=== PATIENT | female | born 1950 | race Caucasian/White ===

== ENCOUNTER 2024-03-18 12:14 | Emergency (ER) | payer OTHER ==
--- OUTSIDE RECORDS SUMMARY | 2024-03-18 12:17 | XMS REPORT | Continuity of Care Document ---
Author Name Unknown Address [address] [place] [address] [facility] thconnect Address [address] [place] [address] Care Team Providers Care Director Of Hotel Name Role Phone Celestino Gongora Attending Clinician Unavailable Payers Payer Name Policy Type Policy Number Effective Date Expirati on Date Source [facility] Medicare Advantage 53 [id number] [facility] Problems Condition Name Condition Details Condition Category Status Onset Date Resolution Date Last Treatment Date Treating Clinician Comments Source [id number] Schizophre medina, unspecifie d type Problem [facility] [id number] Chronic obstructiv e pulmonary disease, unspecifie d COPD type Problem [facility] [id number] Intellectu al disability Problem [facility] [id number] Essential hypertensi on Problem [facility] [id number] COPD exacerbati on Problem [facility] [id number] Restless leg syndrome Problem [facility] [id number] Pure hyperchole sterolemia Problem [facility] Allergies, Adverse Reactions, Alerts Allergy Name Allergy Type Status Severity Reaction(s) Onset Date Inactive Date Treating Clinician Comments Source Substanc e with sulfonam ghada structur e and antibact erial mechanis m of action (substan ce) Substanc e with sulfonam ghada structur e and antibact erial mechanis m of action (substan ce) Active Unknown [facility] Social History Social Habit Start Date Stop Date Quantity Comments Source History of Tobacco Use [facility] Sex Assigned At [facility] Smoking Status Start Date Stop Date Source Never Smoker [facility] Medications Ordered Medication Name Filled Medication Name Start Date Stop Date Current Medication? Ordering Clinician Indication Dosage Frequency Signature (SIG) Comments Components Source Azithromyci n 250 MG Azithromyci n 250 MG 8- 00:00: 00 No Azithromyc in 250 MG predniSONE 10 MG (21) predniSONE 10 MG (21) 8-09 00:00: 00 No QD predniSONE 10 MG (21) Gabapentin 100 MG Gabapentin 100 MG 2- 00:00: 00 No 1{capsu le} QD Gabapentin 100 MG Carvedilol 3.125 MG Carvedilol 3.125 MG 2- 00:00: 00 No 1{table t_with_ food} BID Carvedilol 3.125 MG Symbicort 160-4.5 MCG/ACT Symbicort 160-4.5 MCG/ACT No 2{puffs } BID Symbicort 160-4.5 MCG/ACT Lisinopril 5 MG Lisinopril 5 MG No 1{table t} QD Lisinopril 5 MG buPROPion HCl 100 MG buPROPion HCl 100 MG No 1{table t} BID buPROPion HCl 100 MG QUEtiapine Fumarate 50 MG QUEtiapine Fumarate 50 MG No 1{table t_at_be dtime} QD QUEtiapine Fumarate 50 MG Citalopram Hydrobromid e 40 MG Citalopram Hydrobromid e 40 MG No 1{table t} QD Citalopram Hydrobromi de 40 MG Spiriva Respimat 1.25 MCG/ACT Spiriva Respimat 1.25 MCG/ACT No 2{puffs } QD Spiriva Respimat 1.25 MCG/ACT Albuterol Sulfate (2.5 MG/3ML) 0.083% Albuterol Sulfate (2.5 MG/3ML) 0.083% No 3{ml_as _needed } QID Albuterol Sulfate (2.5 MG/3ML) 0.083% Dulcolax 5 MG Dulcolax 5 MG No 1{table t_as_ne eded} QD Dulcolax 5 MG Vital Signs Vital Name Observation Time Observation Value Comments James cooper height 2024-03-01 11:00:00 60.5 [in_i] Comm on [facility] weight 2024-03-01 11:00:00 153.3 [lb_av] Co mmon [facility] temperature 2024-03-01 11:00:00 97.8 [degF] Com mon [facility] bmi 2024-03-01 11:00:00 29.44 kg/m2 Comm on [facility] oximetry 2024-03-01 11:00:00 96 % Commo n [facility] respiratory rate 2024-03-01 11:00:00 16 /min [facility] blood pressure systolic 2024-03-01 11:00:00 127 mm[Hg] [facility] blood pressure diastolic 2024-03-01 11:00:00 79 mm[Hg] [facility] weight 2023-11-16 13:20:00 157.2 [lb_av] Co mmon [facility] temperature 2023-11-16 13:20:00 97.9 [degF] Com [facility] bmi 2023-11-16 13:20:00 30.19 kg/m2 Comm on [facility] oximetry 2023-11-16 13:20:00 97 % Commo n [facility] respiratory rate 2023-11-16 13:20:00 16 /min [facility] blood pressure systolic 2023-11-16 13:20:00 102 mm[Hg] [facility] blood pressure diastolic 2023-11-16 13:20:00 67 mm[Hg] [facility] height 2023-11-16 13:20:00 60.5 [in_i] Comm on [facility] height 2023-09-21 16:00:00 60.5 [in_i] Comm on [facility] weight 2023-09-21 16:00:00 159.6 [lb_av] Co mmon [facility] temperature 2023-09-21 16:00:00 97.6 [degF] Com mon [facility] bmi 2023-09-21 16:00:00 30.65 kg/m2 Comm on [facility] oximetry 2023-09-21 16:00:00 98 % Commo n [facility] respiratory rate 2023-09-21 16:00:00 16 /min [facility] blood pressure systolic 2023-09-21 16:00:00 138 mm[Hg] [facility] blood pressure diastolic 2023-09-21 16:00:00 71 mm[Hg] [facility] height 2023-09-13 09:40:00 60.5 [in_i] Comm on [facility] weight 2023-09-13 09:40:00 160 [lb_av] Comm on [facility] temperature 2023-09-13 09:40:00 98.2 [degF] Com mon [facility] bmi 2023-09-13 09:40:00 30.73 kg/m2 Comm on [facility] oximetry 2023-09-13 09:40:00 94 % Commo n [facility] respiratory rate 2023-09-13 09:40:00 16 /min Common [facility] blood pressure systolic 2023-09-13 09:40:00 137 mm[Hg] [facility] blood pressure diastolic 2023-09-13 09:40:00 79 mm[Hg] [facility] height 2023-09-07 15:40:00 60.5 [in_i] Comm on [facility] weight 2023-09-07 15:40:00 159.2 [lb_av] Co mmon [facility] temperature 2023-09-07 15:40:00 97.8 [degF] Com mon [facility] bmi 2023-09-07 15:40:00 30.58 kg/m2 Comm on [facility] oximetry 2023-09-07 15:40:00 97 % Commo n [facility] respiratory rate 2023-09-07 15:40:00 16 /min Common [facility] blood pressure systolic 2023-09-07 15:40:00 135 mm[Hg] [facility] blood pressure diastolic 2023-09-07 15:40:00 68 mm[Hg] [facility] height 2023-08-17 13:40:00 60.5 [in_i] Comm on [facility] weight 2023-08-17 13:40:00 157.4 [lb_av] Co mmon [facility] temperature 2023-08-17 13:40:00 97.2 [degF] Com [facility] bmi 2023-08-17 13:40:00 30.23 kg/m2 Comm on [facility] oximetry 2023-08-17 13:40:00 97 % Commo n [facility] respiratory rate 2023-08-17 13:40:00 16 /min Common [facility] blood pressure systolic 2023-08-17 13:40:00 138 mm[Hg] [facility] blood pressure diastolic 2023-08-17 13:40:00 88 mm[Hg] [facility] height 2023-07-10 13:20:00 60.5 [in_i] Comm on [facility] weight 2023-07-10 13:20:00 155.0 [lb_av] Co mmon [facility] temperature 2023-07-10 13:20:00 97.2 [degF] Com [facility] bmi 2023-07-10 13:20:00 29.77 kg/m2 Comm on [facility] oximetry 2023-07-10 13:20:00 95 % Commo n [facility] respiratory rate 2023-07-10 13:20:00 16 /min [facility] blood pressure systolic 2023-07-10 13:20:00 136 mm[Hg] [facility] blood pressure diastolic 2023-07-10 13:20:00 88 mm[Hg] [facility] Encounters Start Date/Time End Date/Time Encounter Type Admission Type Attending [facility] Care Facility Care Department Encounter ID Source 2024-03-01 10:59:00 Outpatient Celestino Gongora STLC STLMLC [id number] [facility] 2023-07-10 13:25:01 Outpatient Celestino Gongora STLMLC STLMLC [id number] [facility] 2024-03-01 00:00:00 2024-03-01 00:00:00 OFFICE VISIT ESTAB PT LEVEL 3 STLMLC STLMLC [id number] [facility] 2024-02-28 00:00:00 2024-02-28 00:00:00 (TEL) STLMLC STLMLC [id number] [facility] 2023-11-27 00:00:00 2023-11-27 00:00:00 (TEL) STLMLC STLMLC [id number] [facility] 2023-11-16 00:00:00 2023-11-16 00:00:00 OFFICE VISIT ESTAB PT LEVEL 4 STLMLC STLMLC [id number] [facility] 2023-10-05 00:00:00 2023-10-05 00:00:00 (TEL) STLMLC STLMLC [id number] [facility] 2023-09-21 00:00:00 2023-09-21 00:00:00 OFFICE VISIT ESTAB PT LEVEL 3 STLMLC STLMLC [id number] [facility] 2023-09-15 00:00:00 2023-09-15 00:00:00 (TEL) STLMLC STLMLC [id number] [facility] 2023-09-14 00:00:00 2023-09-14 00:00:00 (TEL) STLMLC STLMLC [id number] [facility] 2023-09-13 00:00:00 2023-09-13 00:00:00 OFFICE VISIT ESTAB PT LEVEL 3 STLMLC STLMLC [id number] [facility] 2023-09-13 00:00:00 2023-09-13 00:00:00 (TEL) STLMLC STLMLC [id number] [facility] 2023-09-11 00:00:00 2023-09-11 00:00:00 (TEL) STLMLC STLMLC [id number] [facility] 2023-09-07 00:00:00 2023-09-07 00:00:00 OFFICE VISIT ESTAB PT LEVEL 4 STLMLC STLMLC [id number] [facility] 2023-09-05 00:00:00 2023-09-05 00:00:00 (TEL) STLMLC STLMLC [id number] [facility] 2023-08-17 00:00:00 2023-08-17 00:00:00 OFFICE VISIT ESTAB PT LEVEL 4 STLMLC STLMLC [id number] [facility] 2023-08-04 00:00:00 2023-08-04 00:00:00 (TEL) STLMLC STLMLC [id number] [facility] 2023-07-10 00:00:00 2023-07-10 00:00:00 OFFICE VISIT ESTAB PT LEVEL 4 STLMLC STLMLC [id number] [facility]
--- NOTE | 2024-03-18 13:17 | RAD REPORT ---
EXAM DESCRIPTION: Megan Single View03/18/2024 1:10 pm CLINICAL HISTORY: cough COMPARISON: none FINDINGS: Large opacity overlies the mid to lower right lung. Left hemidiaphragm elevated The upper lobes clear. Heart size is difficult to determine impression Scoliosis IMPRESSION: Large opacity overlies mid to lower right lung probably large hernia. Lateral chest film is recommended for further evaluation
[2024-03-18 14:43] LABS: Absolute Basophils 0.1 K/uL (0-0.5); Absolute Eosinophils 0.4 K/uL (0-0.5); Absolute Monocytes 0.7 K/uL (0.1-1.3); Basophils % 0.6 % (0-1.3); Eosinophils % 4.4 % (0-4.4); Hematocrit 39.8 % (36.0-45.0); Lymphocytes % 25.1 % (15.3-44.8); MCH 29.9 pg (27.0-35.0); MCHC 32.7 g/dL (32.0-36.0); MCV 91.6 fL (80-100); MPV 8.7 fL (7.6-11.3); Monocytes % 8.4 % (3.3-12.3); Neutrophils % 61.5 % (41.7-73.7); Platelets 206 thou/uL (152-406); RBC Red Blood Cell Count 4.34 M/uL (3.86-4.86); Red Cell Distribution Width 12.4 % (12.1-15.2)
[2024-03-18 15:13] LABS: Albumin 3.5 g/dL (3.4-5.0); Albumin/Globulin Ratio 0.8 (1.1-1.8); Bilirubin Total 0.5 mg/dL (0.2-1.0); Globulin 4.5 g/dL (2.3-3.5)
[2024-03-18 15:22] LABS: SARS-CoV-2 Antigen CONTROL BLUE LINE VIS/BG OK; SARS-CoV-2 Antigen Rapid Res Negative (Negative)
[2024-03-18] MEDS ORDERED: ONDANSETRON 4 MG/2 ML VIAL ONE (15:34)
[2024-03-18] MEDS ORDERED: MORPHINE 4 MG/ML SYR ONE (15:34)
[2024-03-18] MEDS ORDERED: CEFTRIAXONE 1000 MG/VIAL ONE (15:52)
[2024-03-18] MEDS ORDERED: METHYLPREDNISOLONE 125 MG INJ ONE (15:52)
[2024-03-18] MEDS ORDERED: NA CHLORIDE 0.9% 100 ML ONE (15:52)
--- NOTE | 2024-03-18 16:08 | ER ---
Nurse's Notes [facility] Name: Tiffanie Hylton Age: 74 yrs Sex: Female : 1950 Arrival Date: 03/18/2024 Time: 12:14 Bed 20 Private MD: Dylon Gongora Diagnosis: COPD exacerbation, cough, URI Presentation: 03/18 12:51 Chief complaint: Spouse and/or significant other states: we think she has pneumonia iw again, has been sleeping a lot, has chills, headache , wheezing, was on antibiotics, not helping, was vomiting yesterday , symptoms started a week ago , sees Dr. Gongora. Coronavirus screen: Client presents with at least one sign or symptom that may indicate coronavirus-19. Ebola Screen: No symptoms or risks identified at this time. Initial Sepsis Screen: Does the patient meet any 2 criteria? Does the patient have a suspected source of infection? No. Patient's initial sepsis screen is negative. Risk Assessment: Do you want to hurt yourself or someone else? Patient reports no desire to harm self or others. Onset of symptoms was March 13, 2024. 12:51 Method Of Arrival: Ambulatory iw 12:51 Acuity: GLORIA 3 iw Triage Assessment: 15:14 General: Appears in no apparent distress. Behavior is agitated, anxious. Pain: Denies bp pain. EENT: No deficits noted. Neuro: No deficits noted. Cardiovascular: No deficits noted. Respiratory: Breath sounds with wheezes bilaterally. GI: No signs and/or symptoms were reported involving the gastrointestinal system. : No signs and/or symptoms were reported regarding the genitourinary system. Derm: No deficits noted. Musculoskeletal: No deficits noted. Historical: - Allergies: 12:53 Sulfa (Sulfonamide Antibiotics); iw - PMHx: 12:53 copd; hiatal hernia; iw - PSHx: 12:53 Cholecystectomy; iw - Immunization history:: Adult Immunizations not up to date. - Infectious Disease History:: Denies. - Social history:: Smoking status: Patient denies any tobacco usage or history of. Screenin:15 [facility] ED Fall Risk Assessment (Adult) History of falling in the last 3 months, bp including since admission No falls in past 3 months (0 pts) Confusion or Disorientation No (0 pts) Intoxicated or Sedated No (0 pts) Impaired Gait Yes (1 pt) Mobility Assist Device Used No (0 pt) Altered Elimination No (0 pt) Score/Fall Risk Level 0 - 2 = Low Risk. Abuse screen: Denies threats or abuse. Denies injuries from another. Nutritional screening: No deficits noted. Tuberculosis screening: No symptoms or risk factors identified. Assessment: 15:14 Reassessment: PT REFUSING CT, MD INFORMED. bp 16:27 Cardiovascular: Capillary refill < 3 seconds. Respiratory: Airway is patent Respiratory bp effort is even, unlabored. Vital Signs: 12:51 BP 135 / 89; Pulse 65; Resp 18; Temp 98.1; Pulse Ox 99% on 3 lpm NC; Pain 0/10; iw 16:27 BP 141 / 79; Pulse 75; Resp 16; Pulse Ox 99% ; bp 12:51 Pain Scale: Adult iw ED Course: 12:17 Patient arrived in ED. as 12:17 Dylon Gongora is Private Physician. as 12:18 Nadir Lazo MD is Attending Physician. sp3 12:53 Triage completed. iw 12:54 Arm band placed on. iw 13:09 Chest Single View XRAY In Process Unspecified. EDMS 14:46 Sy Mercado, RN is Primary Nurse. bp 15:15 Patient has correct armband on for positive identification. bp 15:29 Radiology exam delayed due to pt refusing CT at this time. ls3 16:26 No provider procedures requiring assistance completed. IV discontinued, intact, bp bleeding controlled, No redness/swelling at site. Pressure dressing applied. Administered Medications: 15:59 Drug: Rocephin IV 1 grams IV at calculated rate once; Given slow IV push per pharmacy bp instructions Route: IV; Rate: calculated rate; Site: left antecubital; 16:26 Follow up: IV Status: Completed infusion; IV Intake: 100ml bp 16:00 Drug: MethylPrednisoLONE IVP 60 mg IVP once Route: IVP; Site: left antecubital; bp 16:26 Follow up: Response: No adverse reaction bp Medication: 16:27 VIS not applicable for this client. bp Intake: 16:26 IV: 100ml; Total: 100ml. bp Outcome: 16:07 Discharge ordered by . sp3 16:26 Discharged to home via wheelchair, with family, bp 16:26 Condition: stable 16:26 Discharge instructions given to patient, family, Instructed on discharge instructions, follow up and referral plans. medication usage, Demonstrated understanding of instructions, follow-up care, medications, Prescriptions given X 2, 16:27 Patient left the ED. bp 16:39 Patient left the ED. ap3 Signatures: Dispatcher [employer] EDMS Sylvia Llamas Irene, RN RN iw Sy Mercado RN RN bp Prokisch, Amanda, RN RN ap3 Starr Watters 3 Nadir Lazo MD MD sp3
--- NOTE | 2024-03-18 16:08 | EDPHYS ---
Physician Documentation [facility] Name: Tiffanie Hylton Age: 74 yrs Sex: Female : 1950 Arrival Date: 03/18/2024 Time: 12:14 Bed 20 Private MD: Dylon Gongora ED Physician Nadir Lazo HPI: 03/18 15:49 This 74 yrs old Female presents to ER via Ambulatory with complaints of Congestion, sp3 Wheezing > 1 Year, Vomiting, Weakness. 15:49 74-year-old female with history of COPD, known hiatal hernia presents with shortness of sp3 breath, cough and congestion for greater than 1 month although worse over the last 2 to 3 days. Patient is accompanied by her family. She denies any other symptoms including fever, headache, chest pain, back pain, abdominal pain, vomiting, diarrhea, syncope, near syncope, rash, or any other aspect of review of systems at this time. Patient states in the past steroids and antibiotics have helped her during episodes like this.. Historical: - Allergies: 12:53 Sulfa (Sulfonamide Antibiotics); iw - PMHx: 12:53 copd; hiatal hernia; iw - PSHx: 12:53 Cholecystectomy; iw - Immunization history:: Adult Immunizations not up to date. - Infectious Disease History:: Denies. - Social history:: Smoking status: Patient denies any tobacco usage or history of. ROS: 15:50 Constitutional: Negative for fever, chills, and weight loss, Eyes: Negative for injury, sp3 pain, redness, and discharge, Neck: Negative for injury, pain, and swelling, Cardiovascular: Negative for chest pain, palpitations, and edema, Abdomen/GI: Negative for abdominal pain, nausea, vomiting, diarrhea, and constipation, Back: Negative for injury and pain, MS/Extremity: Negative for injury and deformity, Skin: Negative for injury, rash, and discoloration, Neuro: Negative for headache, weakness, numbness, tingling, and seizure, Psych: Negative for depression, anxiety, suicide ideation, homicidal ideation, and hallucinations, Allergy/Immunology: Negative for hives, rash, and allergies, Endocrine: Negative for neck swelling, polydipsia, polyuria, polyphagia, and marked weight changes, Hematologic/Lymphatic: Negative for swollen nodes, abnormal bleeding, and unusual bruising, 15:50 All other systems are negative, Exam: 15:51 Constitutional: This is a well developed, well nourished patient who is awake, alert, sp3 and in no acute distress. Head/Face: Normocephalic, atraumatic. Eyes: Pupils equal round and reactive to light, extra-ocular motions intact. Lids and lashes normal. Conjunctiva and sclera are non-icteric and not injected. Cornea within normal limits. Periorbital areas with no swelling, redness, or edema. Neck: Trachea midline, no thyromegaly or masses palpated, and no cervical lymphadenopathy. Supple, full range of motion without nuchal rigidity, or vertebral point tenderness. No Meningismus. Chest/axilla: Normal chest wall appearance and motion. Nontender with no deformity. No lesions are appreciated. Cardiovascular: Regular rate and rhythm with a normal S1 and S2. No gallops, murmurs, or rubs. Normal PMI, no JVD. No pulse deficits. Abdomen/GI: Soft, non-tender, with normal bowel sounds. No distension or tympany. No guarding or rebound. No evidence of tenderness throughout. Back: No spinal tenderness. No costovertebral tenderness. Full range of motion. Skin: Warm, dry with normal turgor. Normal color with no rashes, no lesions, and no evidence of cellulitis. MS/ Extremity: Pulses equal, no cyanosis. Neurovascular intact. Full, normal range of motion. Neuro: Awake and alert, GCS 15, oriented to person, place, time, and situation. Cranial nerves II-XII grossly intact. Motor strength 5/5 in all extremities. Sensory grossly intact. Cerebellar exam normal. Normal gait. 15:51 ECG was reviewed by the Attending Physician. EKG demonstrates normal sinus rhythm at 71 bpm with normal intervals, normal QRS, normal axis, nonspecific diffuse ST's ST changes without evidence of acute ischemia. 15:51 Respiratory: Mild dry cough noted. No respiratory distress or difficulty talking., Vital Signs: 12:51 BP 135 / 89; Pulse 65; Resp 18; Temp 98.1; Pulse Ox 99% on 3 lpm NC; Pain 0/10; iw 16:27 BP 141 / 79; Pulse 75; Resp 16; Pulse Ox 99% ; bp 12:51 Pain Scale: Adult iw MDM: 12:44 Patient medically screened. sp3 15:52 Data reviewed: vital signs, nurses notes, lab test result(s), EKG, radiologic studies. sp3 ED course: 74-year-old female with COPD now presenting with cough and congestion and URI symptoms. Differential diagnosis includes COPD exacerbation, bronchitis, pneumonia, viral syndrome, COVID-19, influenza and to a much lesser degree of the cardiac abnormality or CHF. Patient is clinically not septic. I reviewed chest x-ray which demonstrates extensive hiatal hernia which limits review of the lungs. CT scan was attempted however patient did not tolerate due to anxiety. Laboratory values without significant abnormality and swabs are negative. We will administer Rocephin IV and Solu-Medrol IV and discharge patient home on p.o. antibiotics and steroid taper. Follow-up with her PCP as needed.. 03/18 13:05 Order name: CBC with Diff; Complete Time: 15:36 sp3 03/18 13:05 Order name: CMP; Complete Time: 15:36 sp3 03/18 13:05 Order name: Lactate w/ 2H reflex if indic.; Complete Time: 15:36 sp3 03/18 13:05 Order name: Flu; Complete Time: 15:36 sp3 03/18 13:05 Order name: SARS RAPID; Complete Time: 15:36 sp3 03/18 13:05 Order name: Strep sp3 03/18 15:28 Order name: Throat Culture [facility] 03/18 13:05 Order name: Chest Single View XRAY; Complete Time: 13:36 sp3 03/18 13:05 Order name: EKG; Complete Time: 13:06 sp3 03/18 13:05 Order name: Cardiac monitoring; Complete Time: 14:47 sp3 03/18 13:05 Order name: EKG - Nurse/Tech; Complete Time: 15:46 sp3 03/18 13:05 Order name: IV Saline Lock - Large Bore; Complete Time: 14:47 sp3 03/18 13:05 Order name: Labs collected and sent; Complete Time: 14:47 sp3 03/18 13:05 Order name: O2 Per Protocol; Complete Time: 14:47 sp3 03/18 13:05 Order name: O2 Sat Monitoring; Complete Time: 14:47 sp3 03/18 13:05 Order name: Vital Signs; Complete Time: 14:47 sp3 Administered Medications: 15:59 Drug: Rocephin IV 1 grams IV at calculated rate once; Given slow IV push per pharmacy bp instructions Route: IV; Rate: calculated rate; Site: left antecubital; 16:26 Follow up: IV Status: Completed infusion; IV Intake: 100ml bp 16:00 Drug: MethylPrednisoLONE IVP 60 mg IVP once Route: IVP; Site: left antecubital; bp 16:26 Follow up: Response: No adverse reaction bp Disposition Summary: 03/18/24 16:07 Discharge Ordered Notes: Location: Home sp3 Condition: Stable sp3 Diagnosis - COPD exacerbation, cough, URI sp3 Followup: sp3 - With: Private Physician - When: Upon discharge from the Emergency Department - Reason: Continuance of care Discharge Instructions: - Discharge Summary Sheet sp3 - COPD and Physical Activity sp3 Forms: - Medication Reconciliation Form sp3 - Antibiotic Education sp3 - Prescription Opioid Use sp3 - Patient Portal Instructions sp3 - Leadership Thank You Letter sp3 Prescriptions: - Medrol (Elbert) 4 mg Oral Tablets, Dose Pack - take 1 tablet ORAL route as directed - follow package instructions; 1 packet; sp3 Refills: 0, Product Selection Permitted - levofloxacin 500 mg Oral tablet - take 1 tablet ORAL route once daily for 7 days; 7 tablet; Refills: 0, Product sp3 Selection Permitted Signatures: Dispatcher [employer] Nicky Kee RN RN iw Peltier, Brian, RN RN bp Patel, Setul, MD MD sp3 Corrections: (The following items were deleted from the chart) 13:06 13:06 BLOOD CULTURE*+BA.LAB.BRZ ordered. EDMS EDMS 13:06 13:06 CBC+H.LAB.BRZ ordered. EDMS EDMS 13:06 13:06 COMPREHENSIVE METABOLIC PANEL+C.LAB.BRZ ordered. EDMS EDMS 13:06 13:06 LACTATE+C.LAB.BRZ ordered. EDMS EDMS 13:06 13:06 Urinalysis+U.LAB.BRZ ordered. EDMS EDMS 13:06 13:06 Influenza Screen (A \T\ B)+BA.LAB.BRZ ordered. EDMS EDMS 13:06 13:06 SARS-COV-2 Antigen Rapid+I.LAB.BRZ ordered. EDMS EDMS 13:06 13:06 Group A Streptococcus Rapid Sc+BA.LAB.BRZ ordered. EDMS EDMS 13:37 13:37 Chest Abdomen Pelvis W Con+CT.RAD.BRZ ordered. EDMS EDMS
[2024-03-18 16:53] VITALS: TEMP 98.1; O2SAT 99
[2024-03-18 17:07] VITALS: BP 141/79
--- NOTE | 2024-03-19 12:41 | EKG ---
Test Date: 2024-03-18 Test Time: 15:46:38 [employer]or Of Internal [employer]: PRINCESS MEASUREMENT RESULTS: Intervals: Rate: 71 MT: 144 QRSD: 72 QT: 396 QTc: 430 [employer] [place]: P: 66 MT: 144 QRS: 55 T: 82 INTERPRETIVE STATEMENTS: Normal sinus rhythm Normal ECG No previous ECG available for comparison Electronically Signed On 03-19-24 12:38:35 CDT by Evangelist Olivares
== END 2024-03-18 16:39 | disposition home or self-care (01) ==
LOC: ER 12:14
DX: J44.1 Chronic obstructive pulmonary disease with (acute) exacerbation (principal); J06.9 Acute upper respiratory infection, unspecified; Z11.52 Encounter for screening for COVID-19
CPT/HCPCS: 93005; 87070; 85025; 36415; 87081; 83605; 80053; 87804 ×2; 71045; 87811; J2919; J2405; J0696; 87040; 96365; 96375; 99284

== ENCOUNTER 2025-04-11 16:11 | Emergency (ER) | payer OTHER ==
[2025-04-11] MEDS ORDERED: ONDANSETRON 4 MG/2 ML VIAL ONE (16:54)
[2025-04-11] MEDS ORDERED: MORPHINE 4 MG/ML SYR ONE (16:55)
[2025-04-11] MEDS ORDERED: FAMOTIDINE 20 MG/2 ML VIAL IV ONE (16:56)
[2025-04-11 17:54] LABS: Absolute Lymphocytes (CBC) 1.4 K/uL (0.7-4.9); Hematocrit 42.0 % (36.0-45.0); Hemoglobin 14.0 g/dL (12.0-15.0); MCH 30.5 pg (27.0-35.0); MCHC 33.5 g/dL (32.0-36.0); MCV 91.1 fL (80-100); MPV 8.7 fL (7.6-11.3); Nucleated RBC Absolute Count 0.0 (0-0); Nucleated Red Blood Cells % 0.1 % (0-0); RBC Red Blood Cell Count 4.61 M/uL (3.86-4.86); White Blood Count 23.30 thou/uL (4.3-10.9)
[2025-04-11 18:33] LABS: Blood Morphology Comment NOTED (NOT SEEN); Stomatocytes 1+; Target Cells FEW; White Blood Cell Scan OK (OK)
[2025-04-11] MEDS ORDERED: PIPERACIL/TAZO 3.375 GM VIAL IV ONE (18:43)
[2025-04-11] MEDS ORDERED: NA CHLORIDE 0.9% 100 ML ONE (18:43)
[2025-04-11 19:20] LABS: ALT/SGPT 21.0 U/L (13-56); AST/SGOT 20.0 U/L (15-37); Albumin 3.1 g/dL (3.4-5.0); Albumin/Globulin Ratio 0.8 (1.1-1.8); Alkaline Phosphatase 94.0 U/L (45-117); Anion Gap 7.4 mEq/L (5.0-15.0); BUN Blood Urea Nitrogen 27.0 mg/dL (7-18); Globulin 4.1 g/dL (2.3-3.5); Glucose Level 129.0 mg/dL (74-106); Lipase 8.0 U/L (13-75); Potassium 4.4 mEq/L (3.5-5.1)
[2025-04-11 21:32] LABS: NT PRO-BNP 853.0 pg/mL (<125)
[2025-04-11 21:37] LABS: PT Prothrombin Time 14.9 SECONDS (10-13.0); PTT, Activated Partial Thromb 30.6 SECONDS (27.2-37.4); Protime INR 1.33
[2025-04-11 21:43] LABS: Troponin High Sensitivity 146.0 pg/mL (<58.9)
--- NOTE | 2025-04-11 21:43 | RAD REPORT ---
EXAM: Chest Abdomen Pelvis W Cont CLINICAL INDICATION: Female, 75 years PAIN TECHNIQUE: CT chest, abdomen and pelvis was performed, with IV contrast, as per department protocol. Axial, sagittal and coronal reconstructions were obtained. One or more of the following dose reduction techniques were used: Automated exposure control, adjustment of the mA and/or kV according to the patient size, and/or iterative reconstruction. Unless otherwise specified, incidental findings do not require dedicated imaging follow-up. [id number]. COMPARISON: No prior exams FINDINGS: ---THORAX--- LOWER NECK AND CHEST WALL: Visualized thyroid gland and soft tissues are normal. MEDIASTINUM AND LYMPH NODES: No mediastinal mass or fluid collection. Normal size mediastinal, hilar, and axillary lymph nodes. . Very large hiatal hernia. THORACIC AORTA: No thoracic aortic aneurysm. PULMONARY ARTERIES: Enlarged main pulmonary arteries could indicate pulmonary artery hypertension. No pulmonary emboli identified. HEART: Normal heart size. No coronary calcifications.No significant pericardial effusion. LUNGS AND AIRWAYS: Atelectasis as a result of the large hiatal hernia. No suspicious and/or stable pu lmonary nodules. PLEURA: No pleural effusion. No pneumothorax. ---ABDOMEN/PELVIS--- UPPER GI: Very large hiatal hernia with completely intrathoracic stomach. LIVER: No significant focal abnormality. GALLBLADDER/BILE DUCTS: Cholecystectomy. Mild extra-hepatic biliary ductal dilatation is likely relat ed to the post-cholecystectomy state. Consider correlating with LFT's.? PANCREAS: No mass, ductal dilation, or dahlia-pancreatic fluid. SPLEEN: Unremarkable. ADRENALS: No adrenal masses. KIDNEYS AND URETERS: No hydronephrosis.Left renal sinus cyst.No renal calculi.No ureteral calculi. ABDOMINAL AORTA AND OTHER VESSELS: Normal caliber aorta and IVC. Prominent venous collaterals in the mesentery. PERITONEUM: Nonspecific free fluid. LYMPH NODES: No pathologic lymphadenopathy. ABDOMINAL WALL: Unremarkable SMALL BOWEL/COLON: Moderate wall thickening of the transverse colon which extends to the proximal sig moid. The degree of thickening at the distal transverse colon is more pronounced. URINARY BLADDER: Underdistended but grossly unremarkable. REPRODUCTIVE ORGANS: No pathologic process. ---COMBINED--- MUSCULOSKELETAL: Multilevel degenerative changes in the spine. No acute fracture. ADDITIONAL FINDINGS: None. IMPRESSION: Moderate wall thickening of the transverse colon through the proximal sigmoid. The most severely affe cted area is at the distal transverse colon. The distribution is typical of ischemic colitis though infectious and inflammatory etiologies also within differential. Though limited due to timing, the ab dominal aorta and proximal major branches are grossly patent. The major venous structures also appear grossly patent.
--- NOTE | 2025-04-11 22:54 | ER ---
Nurse's Notes [facility] Name: Tiffanie Hylton Age: 75 yrs Sex: Female : 1950 Arrival Date: 04/11/2025 Time: 16:11 Bed 7 Private MD: Diagnosis: Left sided colitis;COLITIS;ABDOMINAL PAIN;LEUKOCYTOSIS;HIATAL HERNIA;ELEVATED TROPONIN Presentation: 04/11 16:17 Chief complaint: Patient states: SHE FEELS SICK, STOMACH PAIN X 1 DAY. Coronavirus dd2 screen: At this time, the client does not indicate any symptoms associated with coronavirus-19. Ebola Screen: No symptoms or risks identified at this time. Initial Sepsis Screen: Does the patient meet any 2 criteria? No. Patient's initial sepsis screen is negative. Does the patient have a suspected source of infection? No. Patient's initial sepsis screen is negative. Risk Assessment: Do you want to hurt yourself or someone else? Patient reports no desire to harm self or others. Onset of symptoms was April 10, 2025. 16:17 Method Of Arrival: Ambulatory dd2 16:17 Acuity: GLORIA 3 dd2 Triage Assessment: 16:23 General: Appears uncomfortable, Behavior is calm, cooperative, appropriate for age. dd2 Pain: Complains of pain in umbilical area and left upper quadrant Pain currently is 9 out of 10 on a pain scale. GI: Reports upper abdominal pain. Historical: - Allergies: 16:23 Sulfa (Sulfonamide Antibiotics); dd2 - PMHx: 16:23 COPD; hiatal hernia; Hypertensive disorder; Dementia; MR; CARDIOMEGALY; dd2 - PSHx: 16:23 Cholecystectomy; dd2 - Immunization history:: Adult Immunizations unknown. - Infectious Disease History:: Denies. - Social history:: Smoking status: Patient denies any tobacco usage or history of. Screenin:20 [facility] ED Fall Risk Assessment (Adult) History of falling in the last 3 months, af3 including since admission No falls in past 3 months (0 pts) Confusion or Disorientation No (0 pts) Intoxicated or Sedated No (0 pts) Impaired Gait No (0 pts) Mobility Assist Device Used No (0 pt) Altered Elimination No (0 pt) Score/Fall Risk Level 0 - 2 = Low Risk Oriented to surroundings, Maintained a safe environment, Educated pt \T\ family on fall prevention, incl call for assistance when getting out of bed. Abuse screen: Denies threats or abuse. Denies injuries from another. Nutritional screening: No deficits noted. Tuberculosis screening: No symptoms or risk factors identified. Assessment: 16:44 Reassessment: Patient and/or family updated on plan of care and expected duration. Pain ll1 level reassessed. 17:16 General: Appears in no apparent distress. uncomfortable, well groomed, well developed, af3 Behavior is calm, cooperative, appropriate for age. Pain: Complains of pain in epigastric area. Neuro: Level of Consciousness is awake, alert, obeys commands, Oriented to person, place, time, situation, Appropriate for age. Cardiovascular: Patient's skin is warm and dry. Respiratory: Airway is patent Respiratory effort is even, unlabored, Respiratory pattern is regular, symmetrical. 18:31 Reassessment: Patient appears in no apparent distress at this time. No changes from nh2 previously documented assessment. Patient and/or family updated on plan of care and expected duration. Pain level reassessed. Patient is alert, oriented x 3, equal unlabored respirations, skin warm/dry/pink. 19:30 GI: Bowel sounds present X 4 quads. Abd is non tender. mf3 Vital Signs: 16:17 BP 149 / 99; Pulse 85; Resp 17; Temp 98.5; Pulse Ox 95% on R/A; Weight 68.95 kg; Pain dd2 04/02; 17:22 BP 150 / 89; Pulse 77; Resp 18; Pulse Ox 96% on 2 lpm NC; nh2 18:00 BP 150 / 88; Pulse 73; Resp 16; Pulse Ox 98% on 2 lpm NC; nh2 18:00 BP 154 / 93; Pulse 74; Resp 18; Pulse Ox 100% on 2 lpm NC; nh2 18:49 BP 152 / 100; Pulse 76; Resp 18; Pulse Ox 97% on 2 lpm NC; nh2 20:26 BP 157 / 104; Pulse 82; Resp 18; Pulse Ox 96% on 2 lpm NC; mf3 21:36 BP 148 / 96; Pulse 88; Resp 18; Pulse Ox 96% on 2 lpm NC; mf3 22:30 BP 116 / 95; Pulse 82; Resp 21; Pulse Ox 98% on 3 lpm NC; mf3 04/12 01:00 BP 101 / 80; Pulse 81; Resp 17; Pulse Ox 98% on R/A; mf3 04/11 16:17 Pain Scale: Adult dd2 ED Course: 04/11 16:14 Patient arrived in ED. im 16:15 Camilo Sandhu DO is Attending Physician. ms3 16:23 Triage completed. dd2 16:23 Arm band placed on right wrist. dd2 16:44 Patient placed in an exam room, on a stretcher. ll1 16:53 Rosemary France RN is Primary Nurse. af3 17:02 Initial lab(s) drawn, by sc, sent to lab. Inserted saline lock: 22 gauge in left ap3 antecubital area, using aseptic technique. Blood collected. Flushed with 10 mL NS. 17:20 Patient has correct armband on for positive identification. Bed in low position. Call af3 light in reach. Provided Education on: call light use . 17:20 No provider procedures requiring assistance completed. af3 19:05 Attending Physician role handed off by Camilo Sandhu DO ms3 19:05 Christopher Bal DO is Attending Physician. ms3 20:45 Inserted saline lock: 20 gauge in left antecubital area, using aseptic technique. Blood ha1 collected. Flushed with 10 mL NS Accessed peripheral vein via ultrasound, utilizing dynamic ultrasound technique. 21:25 CT Chest, Abdomen, Pelvis - W/Contrast In Process Unspecified. EDMS 22:57 initiated transfer with Ana at [facility]. [facility] 04/12 00:51 pt was accepted [address] [facility] room 1039. Accepting Karin Valerio \T\ [id number]. Accepting admin Ana [facility] Shameka \T\ [id number]. [facility] will transfer pt. 01:10 Patient transferred, IV remains in place. intact, bleeding controlled, No mf3 redness/swelling at site. Administered Medications: 04/11 17:16 Drug: Famotidine IVP 20 mg IVP once; dilute with 10 mL 0.9% NaCl; give over 2 minutes af3 Route: IVP; Site: right antecubital; 18:28 Follow up: Response: No adverse reaction [facility] 17:16 Drug: Ondansetron IVP 4 mg IVP once; over 2 minutes Route: IVP; Site: right antecubital;af3 18:28 Follow up: Response: No adverse reaction nh2 17:16 Drug: morphine IVP or IV 4 mg IVP once over 4 mins Route: IVP; Infused Over: 4 mins; af3 Site: right antecubital; 18:29 Follow up: Response: No adverse reaction; RASS: Alert and Calm (0) nh2 18:54 Drug: Piperacillin-Tazobactam IVPB 3.375 grams IVPB once over 60 mins; (mix in NS 100 nh2 mL) Route: IVPB; Infused Over: 60 mins; Site: right antecubital; Medication: 17:20 VIS not applicable for this client. af3 Outcome: 22:53 ER care complete, transfer ordered by tt7 04/12 01:09 Transferred by ground EMS to [facility], Transfer form completed. mf3 X-rays sent w/ patient. Condition: stable Instructed on the need for transfer, Demonstrated understanding of transfer 01:10 Patient left the ED. mf3 Signatures: Dispatcher [employer] EDArlette Cano RN ROLAND ap3 Yolanda Clark RN RN ll1 Camilo Sandhu, DO DO ms3 Leta Henson RN RN ha1 Dayna Lassiter Kelsey Maroul [facility] Rosemary France RN RN af3 STEPHANIE ALAN RN ROLAND dd2 Gordy Carreno Jr, RN RN nh2 Cony oCy RN RN mf3 Christopher Bal, DO DO tt7 Corrections: (The following items were deleted from the chart) 04/11 20:22 20:10 In radiology for Abdomen Pelvis W Con+CT.RAD.BRZ. EDFL EDMS 04/12 01:08 04/11 22:30 BP 116 / 95; Pulse 82bpm; Resp 21bpm; Pulse Ox 98% RA; mf3 mf3
--- NOTE | 2025-04-11 22:54 | EDPHYS ---
Physician Documentation [facility] Name: Tiffanie Hylton Age: 75 yrs Sex: Female : 1950 Arrival Date: 04/11/2025 Time: 16:11 Bed 7 Private MD: ED Physician Christopher Bal HPI: 04/11 17:04 This 75 yrs old Female presents to ER via Ambulatory with complaints of Abdominal Pain. ms3 19:02 75-year-old female with past medical history of COPD, hiatal hernia, hypertension, ms3 dementia, mental retardation, cardiomegaly presents to the emergency department for lower abdominal pain that she rates a 9/10. Patient denies radiation of the pain. Patient denies nausea, vomiting, diarrhea, fevers. Patient endorses chills.. Historical: - Allergies: 16:23 Sulfa (Sulfonamide Antibiotics); dd2 - PMHx: 16:23 COPD; hiatal hernia; Hypertensive disorder; Dementia; MR; CARDIOMEGALY; dd2 - PSHx: 16:23 Cholecystectomy; dd2 - Immunization history:: Adult Immunizations unknown. - Infectious Disease History:: Denies. - Social history:: Smoking status: Patient denies any tobacco usage or history of. ROS: 19:02 Cardiovascular: Negative for chest pain, and palpitations. Respiratory: Negative for ms3 shortness of breath, cough, wheezing, and pleuritic chest pain, MS/Extremity: Negative for injury and deformity, Skin: Negative for injury, rash, and discoloration, 19:02 Constitutional: Positive for chills, 19:02 Abdomen/GI: Positive for abdominal pain, Exam: 19:02 Constitutional: This is a well developed, well nourished patient who is awake, alert, ms3 and in no acute distress. Cardiovascular: Regular rate and rhythm with a normal S1 and S2. No gallops, murmurs, or rubs. Normal PMI, no JVD. No pulse deficits. Respiratory: Lungs have equal breath sounds bilaterally, clear to auscultation and percussion. No rales, rhonchi or wheezes noted. No increased work of breathing, no retractions or nasal flaring. 19:02 Skin: Warm, dry with normal turgor. Normal color with no rashes, no lesions, and no evidence of cellulitis. 19:02 Abdomen/GI: Inspection: abdomen appears normal, Bowel sounds: normal, Palpation: moderate abdominal tenderness, in the right lower quadrant and left lower quadrant, Vital Signs: 16:17 BP 149 / 99; Pulse 85; Resp 17; Temp 98.5; Pulse Ox 95% on R/A; Weight 68.95 kg; Pain dd2 04/02; 17:22 BP 150 / 89; Pulse 77; Resp 18; Pulse Ox 96% on 2 lpm NC; nh2 18:00 BP 150 / 88; Pulse 73; Resp 16; Pulse Ox 98% on 2 lpm NC; nh2 18:00 BP 154 / 93; Pulse 74; Resp 18; Pulse Ox 100% on 2 lpm NC; nh2 18:49 BP 152 / 100; Pulse 76; Resp 18; Pulse Ox 97% on 2 lpm NC; nh2 20:26 BP 157 / 104; Pulse 82; Resp 18; Pulse Ox 96% on 2 lpm NC; mf3 21:36 BP 148 / 96; Pulse 88; Resp 18; Pulse Ox 96% on 2 lpm NC; 3 22:30 BP 116 / 95; Pulse 82; Resp 21; Pulse Ox 98% on 3 lpm NC; 3 04/12 01:00 BP 101 / 80; Pulse 81; Resp 17; Pulse Ox 98% on R/A; 3 04/11 16:17 Pain Scale: Adult dd2 MDM: 04/11 16:16 Medical Screening Exam initiated ms3 19:02 Differential diagnosis: appendicitis, bowel obstruction, coronary artery disease, ms3 cholecystitis, Cholelithiasis, diverticulitis, non-specific abd pain, pancreatitis. Transition of care: After a detail discussion of the patient's case, care is transferred to [facility]. 19:24 Data reviewed: vital signs, nurses notes, lab test result(s), amylase and lipase, CBC, tt7 electrolytes, hepatic panel. ED course: I took over care of this patient at shift change at 1900, this is a 75-year-old female with history of dementia and intellectual disability who presented with abdominal pain, her vital signs are stable, laboratory studies demonstrated a leukocytosis of 23,000, otherwise her chemistry is relatively unremarkable, she has been started on Zosyn and is pending CT imaging to determine the source of her pain and leukocytosis. 20:04 Data reviewed: EKG. Independent interpretation of the following test(s) in the tt7 Emergency Department EKG: See my EKG interpretation above. ED course: I have reviewed and independently interpreted the patient's EKG performed on 04/11/2025 at 1953. On my interpretation, normal sinus rhythm, ventricular rate 82 bpm, normal axis, normal QRS interval, normal ST segments, no STEMI. 21:39 Care significantly affected by the following chronic conditions: Hypertension, Chronic tt7 Obstructive Pulmonary Disease, Intellectual disability. ED course: Patient workup results delayed due to difficulty with IV access and IV infiltration prior to CT imaging, CT chest added due to large hiatal hernia seen on CT spa director image of CT abd/pelvis. 22:51 ED course: On my exam of the patient she has some tenderness of the left upper tt7 quadrant, no peritoneal signs, vital signs remained stable, she has received antibiotics, lactate is normal, CT imaging demonstrated some thickening of the transverse colon down to the sigmoid, distribution concerning for potential ischemic colitis, but infectious or inflammatory colitis still within the differential, CT imaging was not a dedicated angiogram but there was visualization of the aorta and proximal vessels and no occlusion was seen, given her normal lactate feel that mesenteric ischemia with is unlikely, also there is a slightly elevated troponin and BNP, I do not suspect ACS, patient is not having any chest pain, EKG without acute ST abnormalities, I am deferring anticoagulation or antiplatelet agents at this time as upon getting further history from the sister there might have been some blood in her bowel movement earlier today but they were uncertain because they saw red stuff in her stool and she did eat beets yesterday, although I believe there to be a low chance of surgical intervention needed for this patient this was also consideration of the decision to not anticoagulate or give antiplatelet agents at this time, I spoke with the hospitalist regarding admission, he recommends that we transfer the patient to a facility with a GI specialist, transfer process initiated, I spoke with hospitalist Dr. Lazo at [facility] who accepts the patient for transfer, I updated the patient and family regarding the results of the workup including laboratory results and CT imaging results, I discussed why the patient was being transferred. 04/12 00:02 Data reviewed: radiologic studies, CT scan. Consideration of Admission/Observation tt7 Escalation of care including admission/observation considered. Management of patient was discussed with the following: Hospitalist: . Historians other than the Patient: Family Member: Sister, Sumaya. 04/11 16:22 Order name: CBC with Diff; Complete Time: 18:37 ms3 04/11 16:22 Order name: CMP; Complete Time: 19:23 ms3 04/11 16:22 Order name: Lipase; Complete Time: 19:23 ms3 04/11 18:06 Order name: CBC Smear Scan; Complete Time: 18:37 EDMS 04/11 19:01 Order name: BNP; Complete Time: 21:44 ms3 04/11 19:01 Order name: Blood Culture Adult (2) ms3 04/11 19:01 Order name: Lactate w/ 2H reflex if indic.; Complete Time: 21:38 ms3 04/11 19:01 Order name: Protime (+inr); Complete Time: 21:38 ms3 04/11 19:01 Order name: Ptt, Activated; Complete Time: 21:38 ms3 04/11 19:01 Order name: Troponin HS; Complete Time: 21:44 ms3 04/11 20:18 Order name: CT Chest, Abdomen, Pelvis - W/Contrast; Complete Time: 21:44 tt7 04/11 19:01 Order name: EKG; Complete Time: 19:01 ms3 04/11 16:22 Order name: IV Saline Lock; Complete Time: 17:02 ms3 04/11 16:22 Order name: Labs collected and sent; Complete Time: 17:02 ms3 04/11 17:13 Order name: Misc. Order: green and lav recollect; Complete Time: 17:44 sp 04/11 18:03 Order name: Misc. Order: green top recollect AGAIN; Complete Time: 18:53 sp 04/11 19:01 Order name: Accucheck; Complete Time: 20:01 ms3 04/11 19:01 Order name: Cardiac monitoring; Complete Time: 19:02 ms3 04/11 19:01 Order name: EKG - Nurse/Tech; Complete Time: 20:00 ms3 04/11 19:01 Order name: IV Saline Lock - Large Bore; Complete Time: 19:02 ms3 04/11 19:01 Order name: O2 Per Protocol; Complete Time: 19:02 ms3 04/11 19:01 Order name: O2 Sat Monitoring; Complete Time: 19:02 ms3 04/11 19:01 Order name: Vital Signs; Complete Time: 19:02 ms3 Administered Medications: 04/11 17:16 Drug: Famotidine IVP 20 mg IVP once; dilute with 10 mL 0.9% NaCl; give over 2 minutes af3 Route: IVP; Site: right antecubital; 18:28 Follow up: Response: No adverse reaction nh2 17:16 Drug: Ondansetron IVP 4 mg IVP once; over 2 minutes Route: IVP; Site: right antecubital;af3 18:28 Follow up: Response: No adverse reaction nh2 17:16 Drug: morphine IVP or IV 4 mg IVP once over 4 mins Route: IVP; Infused Over: 4 mins; af3 Site: right antecubital; 18:29 Follow up: Response: No adverse reaction; RASS: Alert and Calm (0) nh2 18:54 Drug: Piperacillin-Tazobactam IVPB 3.375 grams IVPB once over 60 mins; (mix in NS 100 nh2 mL) Route: IVPB; Infused Over: 60 mins; Site: right antecubital; Disposition: 04/12 00:07 Co-signature as Attending Physician, Christopher Bal DO. tt7 Disposition Summary: 04/11/25 22:53 Transfer Ordered Notes: Transfer Location: [facility] tt7 Reason: Higher level of care tt7 Condition: Stable tt7 Problem: new tt7 Symptoms: have improved tt7 Accepting Physician: Dr. Lazo(04/12/25 01:10) mf3 Diagnosis - Left sided colitis tt7 - COLITIS tt7 - ABDOMINAL PAIN tt7 - LEUKOCYTOSIS tt7 - HIATAL HERNIA tt7 - ELEVATED TROPONIN tt7 Forms: - Medication Reconciliation Form tt7 - SBAR form tt7 Signatures: Dispatcher [employer] EDVA Shiela Monroe Marcus, DO DO ms3 Rosemary France RN RN af3 STEPHANIE ALAN RN RN dd2 Gordy aCrreno Jr, RN RN nh2 Cony Coy RN RN mf3 Christopher Bal DO DO tt7 Corrections: (The following items were deleted from the chart) 04/11 20:22 16:22 Abdomen Pelvis W Con+CT.RAD.BRZ ordered. EDMS EDMS 23:33 22:53 Dr. giraldo 04/12 00:05 04/11 22:51 ED course: I spoke with the hospitalist regarding admission, he recommends that we transfer the patient to a facility with a GI specialist, transfer process initiated. 04/12 00:07 04/11 22:51 ED course: On my exam of the patient she has some tenderness of the left tt7 upper quadrant, no peritoneal signs, vital signs remained stable, she has received antibiotics, lactate is normal, CT imaging demonstrated some thickening of the transverse colon down to the sigmoid, distribution concerning for potential ischemic colitis, but infectious or inflammatory colitis still within the differential, CT imaging was not a dedicated angiogram but there was visualization of the aorta and proximal vessels and no occlusion was seen, given her normal lactate feel that mesenteric ischemia with is unlikely, I spoke with the hospitalist regarding admission, he recommends that we transfer the patient to a facility with a GI specialist, transfer process initiated, I spoke with hospitalist Dr. Lazo at [facility] who accepts the patient for transfer, I updated the patient and family regarding the results of the workup including laboratory results and CT imaging results, I discussed why the patient was being transferred. 04/12 01:10 04/11 23:33 Dr. Lazo tt7 mf3
[2025-04-12 01:15] VITALS: TEMP 98.5
[2025-04-12 01:25] VITALS: O2SAT 98
[2025-04-12 01:27] VITALS: BP 101/80
== END 2025-04-12 01:10 | disposition short-term general hospital (02) ==
LOC: ER 16:11
DX: K51.50 Left sided colitis without complications (principal); K44.9 Diaphragmatic hernia without obstruction or gangrene; D72.829 Elevated white blood cell count, unspecified; R79.89 Other specified abnormal findings of blood chemistry; Z88.2 Allergy status to sulfonamides; I10 Essential (primary) hypertension; J44.9 Chronic obstructive pulmonary disease, unspecified; F03.90 Unspecified dementia, unspecified severity, without behavioral disturbance, psychotic disturbance, mood disturbance, and anxiety
CPT/HCPCS: 93005; 87040 ×2; 85025; 36415; 85610; 83605; 85730; 84484; 83690; 80053; 83880; 71260; 74177; 96375; 96374; 99285; Q9967; J2543; J2405